=== PATIENT | male | born 1940 | race Caucasian/White ===

== ENCOUNTER 2017-05-13 07:24 | Day surgery (SDC) | payer MEDICARE, OTHER ==
[2017-05-08 15:50] VITALS: BMI 26.5
[~2017-05-13 07:24] MED LIST: LACTATED RINGERS 1,000 ML IV SCH; LIDOCAINE 1% 20 ML VIAL (10MG/ML) FOR IV START INTRADERMA PRN
[2017-05-13 07:47] VITALS: TEMP 97
[2017-05-13] MEDS ORDERED: PROPOFOL 10 MG/ML 20 ML VIAL IV ONE (08:28)
--- NOTE | 2017-05-13 08:52 | P.PCN ---
Date of Procedure: 05/13/17 Preoperative Diagnosis: Postoperative Diagnosis: Procedure(s) Performed: Procedure: Total colonoscopy. Preoperative diagnosis: Screening for neoplasia. Postoperative diagnosis: Sigmoid diverticulosis with no evidence of acute diverticulitis, strictures, polyps or cancer. Preparation: HalfLytely prep. Sedation: Was provided by anesthesia. Brief clinical history: The patient is a 76-year-old male who is referred for this evaluation for screening for neoplasia age being his risk factor. He had a prior colonoscopy around 5 years ago. The patient has no abdominal complaints , bleeding or anemia. Procedure: With the patient on his left lateral decubitus position and after informed consent and adequate sedation, the perianal area was inspected and it did not show any fissures or fistulas. There were no masses felt on digital rectal examination. The Olympus CFQ 160L video colonoscope was then inserted in the rectum in the usual fashion and advanced to the cecum. There were several diverticular orifices seen scattered in the sigmoid but there was no evidence of acute diverticulitis or strictures. No polyps or tumors were seen. I retroflexed the endoscope in the rectum before the endoscope was withdrawn. The patient tolerated the procedure well. Plan: The patient was reassured. Discussed dietary measures. At his age, I did not recommend repeat endoscopy in 10 years and that can be kept as a contingency based on his overall health at that time. He will follow up with you as planned. Implants: Indications for Procedure: Operative Findings: Description of Procedure:
[2017-05-13 09:20] VITALS: BP 164/76; PULSE 44; RESP 18
== END 2017-05-13 09:33 | disposition home or self-care (01) ==
LOC: ORWHC2ENDO 07:24
DX: Z12.11 Encounter for screening for malignant neoplasm of colon (principal); K57.30 Diverticulosis of large intestine without perforation or abscess without bleeding; I10 Essential (primary) hypertension; Z72.0 Tobacco use; Z79.82 Long term (current) use of aspirin; Z79.899 Other long term (current) drug therapy
CPT/HCPCS: J2704; G0121

== ENCOUNTER → 2017-07-15 | Outpatient (CLI) | payer MEDICARE ==
[2017-07-15 09:25] LABS: Blood Urea Nitrogen 17 mg/dL (9-20); Non-African American GFR(MDRD) >60 (>60 ml/min/1.73 sqM)
--- NOTE | 2017-07-15 10:21 | CT ---
EXAMINATION TYPE: CT chest w con DATE OF EXAM: 07/15/2017 COMPARISON: NONE HISTORY: SOB, Lt Pleural effusion CT DLP: 411.6 mGycm, Automated exposure control for dose reduction was used. CONTRAST: Performed injected with 100 mL of Omnipaque 300. TECHNIQUE: Axial images were obtained at 5 mm thick sections. Reconstructed images are reviewed on [employer] computer in the coronal plane. FINDINGS: Portion of the thyroid visualized is normal. There is some scarring at the bilateral lung apices. On the right this measures approximately 2.1 x 2 .8 cm. Emphysematous changes are present throughout the upper lung joshi. Milder emphysematous hall es are at the lung bases. There is a nodule within the lingula measuring 0.7 cm. Series 4 image 38. P unctate nodules within the periphery of the right middle lobe measuring 0.3 cm. Series 4 image 38. So me pleural thickening along the major fissure on the right is present. This measures 0.4 cm in thickn ess, image 36 series 4. No enlarged mediastinal or hilar adenopathy is evident. The ascending aorta diameter at the level o f the main pulmonary artery is 3.7 cm. The main pulmonary artery diameter at the bifurcation is 2.4 cm. Coronary artery calcification is noted. Small hiatal hernia is present. Limited CT sections are obtained through the upper abdomen. Aneurysmal dilatation of the visualized a bdominal aorta up to 5.0 cm is evident. Additional workup of the abdominal aorta is recommended. IMPRESSIONS: 1. Scattered lung nodules and suspected scarring. Neoplasm is not excluded. Short-term follow-up CT c hest in 3 months is recommended. 2. Aneurysmal dilatation of the visualized abdominal aorta. Complete workup of the abdominal aorta is recommended.
== END | disposition home or self-care (01) ==
LOC: RADCTMAIN 08:46
PROVIDERS: ATTEND Family Medicine
DX: R91.1 Solitary pulmonary nodule (principal); I71.4 Abdominal aortic aneurysm, without rupture
CPT/HCPCS: 82565; 84520; 71260; 36415; Q9967

== ENCOUNTER → 2017-08-25 | Outpatient (CLI) | payer MEDICARE ==
[2017-08-25 14:37] LABS: Blood Urea Nitrogen 18 mg/dL (9-20); Non-African American GFR(MDRD) >60 (>60 ml/min/1.73 sqM)
--- NOTE | 2017-08-25 15:21 | CT ---
EXAMINATION TYPE: CT angio abdomen pelvis DATE OF EXAM: 08/25/2017 COMPARISON: NONE HISTORY: Patient has no complants at time of study. Follow up study for abnromal prior CT. CT DLP: 1018.5 mGycm CONTRAST: CTA abdominal aorta with 3-D reconstruction is performed without Oral Contrast and without and with I V Contrast, patient injected with 100 mL of Omnipaque 350. Contrast CTA of the abdominal aorta was performed from the lung apex through the base of the pelvis. 3-D reconstruction imaging obtained at a separate workstation. Lung bases: Mild chronic parenchymal changes. Abdominal AORTA: Infrarenal abdominal aortic aneurysm is noted which measures 4.8 cm AP dimension by 5.2 cm transverse dimension by 11 cm in length. There is evidence of mural thrombus. Aneurysm extends to the level of the aortic bifurcation without extension into the iliac vessels. The neck of the ane urysm is 2.3 cm from the renal arteries. Branch vessels are patent. LIVER/GB- No significant abnormal ity is seen. PANCREAS- No significant abnormality is seen. SPLEEN- No significant abnormality is seen. ADRENALS- No significant abnormality is seen. KIDNEYS/BLADDER-small renal cysts noted. BOWEL- No Significant abnormality GENITAL ORGANS: No gross abnormality seen. LYMPH NODES- No greater than 1cm abdominal or pelvic lymph nodes areappreciated. OSSEOUS STRUCTURES- No significant abnormality is seen. OTHER-bilateral fat-containing hernias. IMPRESSION- 1. Infrarenal abdominal aortic aneurysm as discussed.
== END | disposition home or self-care (01) ==
LOC: RADCTMAIN 13:54
DX: I71.4 Abdominal aortic aneurysm, without rupture (principal)
CPT/HCPCS: 82565; 84520; 36415; 74174; Q9967

== ENCOUNTER 2021-10-03 19:14 | Inpatient (IN) | payer MEDICARE ==
[2021-10-03] MEDS ORDERED: IPRATROPIUM 0.5 MG/2.5 ML NEBU INHALATION STA (19:19)
[2021-10-03] MEDS ORDERED: ALBUTEROL NEBULIZED 2.5 MG/3 ML INHALATION STA (19:19)
[2021-10-03] MEDS ORDERED: methylPREDNISolone SOD SUCCI 125 MG/2 ML VIAL IV STA (19:19)
[2021-10-03] MEDS ORDERED: LORazepam 2 MG/ML INJ IV STA (20:01)
--- NOTE | 2021-10-03 20:10 | XR ---
EXAMINATION TYPE: XR chest 1V portable DATE OF EXAM: 10/03/2021 COMPARISON: NONE HISTORY: Difficulty breathing TECHNIQUE: Single view FINDINGS: There is coarse interstitial density in the lungs. There is no gross heart failure. There a re chest leads. Costophrenic angles are fairly clear. There are no hilar masses. IMPRESSION: Pulmonary interstitial fibrosis. No pleural fluid seen to suggest heart failure.
[2021-10-03] MEDS ORDERED: MIDAZOLAM 1 MG/ML 5 ML VIAL IV STA ×2 (20:13→21:10)
[2021-10-03 20:53] LABS: VBG PH 7.22 (7.31-7.41)
[2021-10-03 20:54] LABS: Basophils # (A) 0.1 k/uL (0-0.2); Basophils % (A) 0 %; Eosinophils % (A) 0 %; HCT 43.2 % (39.0-53.0); HGB 14.2 gm/dL (13.0-17.5); Lymphocytes # (A) 0.7 k/uL (1.0-4.8); Lymphocytes % (A) 4 %; MCH 30.5 pg (25.0-35.0); MCHC 32.8 g/dL (31.0-37.0); MCV 92.7 fL (80.0-100.0); Monocytes # (A) 0.6 k/uL (0-1.0); Monocytes % (A) 3 %; Neutrophils # (A) 15.7 k/uL (1.3-7.7); Neutrophils % (A) 92 %; Platelet Count 121 k/uL (150-450); RBC 4.66 m/uL (4.30-5.90); RDW 13.8 % (11.5-15.5); WBC 17.2 k/uL (3.8-10.6)
[2021-10-03] MEDS ORDERED: AZITHROMYCIN 500 MG in SODIUM CHLORIDE 0.9% 250 ML IVPB STA (20:57)
[2021-10-03] MEDS ORDERED: cefTRIAXone IN SWFI 1,000 MG/10 ML SYRINGE IVP STA (20:57)
[2021-10-03 21:06] LABS: Albumin 3.3 g/dL (3.5-5.0); Calcium 9.4 mg/dL (8.4-10.2); Magnesium 2.8 mg/dL (1.6-2.3); Potassium 5.5 mmol/L (3.5-5.1); Total Bilirubin 1.8 mg/dL (0.2-1.3); Total Protein 6.4 g/dL (6.3-8.2)
[2021-10-03] MEDS: KETAMINE 10 MG/ML 20 ML VIAL IV ONE ×2 (21:06→21:09)
[2021-10-03] MEDS ORDERED: ROCURONIUM 10 MG/ML (5 ML VIAL) IV STA (21:11)
[2021-10-03 21:20] LABS: Partial Thromboplastin Time 20.2 sec (22.0-30.0); Prothrombin Time 10.5 sec (9.0-12.0)
[2021-10-03] MEDS ORDERED: SODIUM CHLORIDE 0.9% 1,000 ML IV ONE (21:26)
[2021-10-03] MEDS: SODIUM CHLORIDE 0.9% 1,000 ML IV SCH (21:30)
--- NOTE | 2021-10-03 21:38 | XR ---
EXAMINATION TYPE: XR chest 1V DATE OF EXAM: 10/03/2021 COMPARISON: 10/03/2021 HISTORY: Tube placement TECHNIQUE: FINDINGS: There is extensive pulmonary interstitial infiltrate. There is endotracheal tube is 7 cm fr om the elie. There are chest leads. There is no pneumothorax. IMPRESSION: Extensive pulmonary predominantly interstitial infiltrates without change. Endotracheal t ube is slightly high could be advanced 2 cm.
[2021-10-03] MEDS ORDERED: NALOXONE 0.4 MG/ML 1 ML VIAL IV PRN (21:53)
[2021-10-03] MEDS ORDERED: MORPHINE SULFATE 2 MG/ML SYRINGE IV PRN (21:53)
[2021-10-03] MEDS ORDERED: ENOXAPARIN 40 MG/0.4 ML SYRINGE SQ STA (21:56)
[2021-10-03] MEDS ORDERED: ACETAMINOPHEN SUPPOSITORY 650 MG SUPP RECTAL PRN (22:00)
--- NOTE | 2021-10-03 22:02 | ED ---
General Adult HPI - General Chief complaint: Shortness of Breath Stated complaint: DOMENIC Source: EMS, RN notes reviewed, old records reviewed Mode of arrival: EMS Limitations: altered mental status - History of Present Illness Initial comments: 81-year-old male presenting from home with reported several days of worsening cough and dyspnea. History is limited. Patient was transported by paramedics, found to be hypoxic in the 50s. He was placed on CPAP and was nearly intubated during transport. Patient had reported previous medical history of COPD and emphysema and was prescribed home oxygen but did not use this regularly. No other history available. - Related Data Home Medications Medication Instructions Recorded Confirmed Losartan Potassium [Cozaar] 100 mg PO DAILY 05/17/15 10/03/21 Albuterol Sulfate [Ventolin HFA] 2 puff INHALATION RT-Q6H PRN 10/03/21 10/03/21 Umeclidinium Brm/Vilanterol Tr 1 puff INHALATION RT-DAILY 10/03/21 10/03/21 [Anoro Ellipta 62.5-25 Mcg INH] Allergies Allergy/AdvReac Type Severity Reaction Status Date / Time No Known Allergies Allergy Verified 10/03/21 20:39 Review of Systems ROS Statement: Those systems with pertinent positive or pertinent negative responses have been documented in the HPI. ROS Other: All systems not noted in ROS Statement are negative. Past Medical History Past Medical History: COPD, Hypertension Additional Past Medical History / Comment(s): RT LEG RASH (THINKS EXZEMA) "CORN ON RIGHT PINKIE" History of Any Multi-Drug Resistant Organisms: None Reported Past Surgical History: Appendectomy, Heart Catheterization, Hernia Repair Additional Past Surgical History / Comment(s): HERNIA REPAIR X2 Past Anesthesia/Blood Transfusion Reactions: No Reported Reaction Past Psychological History: No Psychological Hx Reported Smoking Status: Former smoker Past Alcohol Use History: None Reported Past Drug Use History: None Reported - Past Family History Brother(s) Family Medical History: Cancer General Exam Limitations: altered mental status General appearance: obtunded, in distress Head exam: Present: atraumatic, normocephalic Eye exam: Present: normal appearance, PERRL ENT exam: Present: mucous membranes dry Respiratory exam: Present: respiratory distress, rales, rhonchi, accessory muscle use, decreased breath sounds Cardiovascular Exam: Present: regular rate, normal rhythm GI/Abdominal exam: Present: soft. Absent: distended, tenderness, guarding, rebound Extremities exam: Present: other (Peripheral cyanosis, mottled extremities). Absent: normal capillary refill Neurological exam: Present: motor sensory deficit (Patient seems to be moving all extremities symmetrically). Absent: oriented X3 Psychiatric exam: Present: agitated, anxious Skin exam: Present: warm, mottled Course Vital Signs 10/03/21 10/03/21 10/03/21 19:16 19:33 20:16 Temperature 96.0 F L Pulse Rate 101 H 98 106 H Respiratory 34 H Rate Blood Pressure 159/106 O2 Sat by Pulse 94 L Oximetry 10/03/21 21:50 Temperature 97.0 F L Pulse Rate 103 H Respiratory 12 Rate Blood Pressure 133/66 O2 Sat by Pulse 96 Oximetry EKG Findings - EKG Comments: EKG Findings:: EKG: Sinus tachycardia with PVC, rate of 105, UT interval 198, QRS duration 88, QTC 425, no ST segment elevation. Procedures - Intubation Sedative: Versed Mg Given: 5 Paralytic: Rocuronium Mg Given: 50 Laryngoscope: Gregory Size: 3 ET Tube Size: 7.5 ET Tube Uncuffed: No Tube Secured Depth (cm): 22 Tube Secured Location: lips Tube Placement Confirmation: visualized tube passing through cords, equal breath sounds bilaterally, no breath sounds over epigastrium, confirmation by capnometry Patient Tolerated Procedure: well Intubation Complications: none Medical Decision Making - Medical Decision Making 81-year-old male presenting in severe respiratory distress with hypoxia. He was given a trial of BiPAP but was unable to tolerate. He was intubated in the emergency department. Initial chest x-ray shows fibrosis and suggests bilateral infiltrate. Patient has leukocytosis 17.2. Stable hemoglobin. He has a creatinine of 3.9 and elevated BUN which is acute for this patient. Lactic acid is 7.2 which I suspect is from a combination of hypoxia and dehydration. He is started on IV fluids as well as IV steroids and IV antibiotics. He is maintained on the ventilator. I did discuss case both with Dr. Cabral, Dr. García covering for the ICU. COVID pos. - Lab Data Result diagrams: 10/03/21 20:34 10/03/21 20:34 Lab Results 10/03/21 10/03/21 10/03/21 Range/Units 19:19 19:52 20:34 WBC 17.2 H (3.8-10.6) k/uL RBC 4.66 (4.30-5.90) m/uL Hgb 14.2 (13.0-17.5) gm/dL Hct 43.2 (39.0-53.0) % MCV 92.7 (80.0-100.0) fL MCH 30.5 (25.0-35.0) pg MCHC 32.8 (31.0-37.0) g/dL RDW 13.8 (11.5-15.5) % Plt Count 121 L (150-450) k/uL MPV 11.0 Neutrophils % 92 % Lymphocytes % 4 % Monocytes % 3 % Eosinophils % 0 % Basophils % 0 % Neutrophils # 15.7 H (1.3-7.7) k/uL Lymphocytes # 0.7 L (1.0-4.8) k/uL Monocytes # 0.6 (0-1.0) k/uL Eosinophils # 0.0 (0-0.7) k/uL Basophils # 0.1 (0-0.2) k/uL PT (9.0-12.0) sec INR (<1.2) APTT (22.0-30.0) sec VBG pH (7.31-7.41) VBG pCO2 (37-51) mmHg VBG HCO3 (24-28) mmol/L Sodium (137-145) mmol/L Potassium (3.5-5.1) mmol/L Chloride (98-107) mmol/L Carbon Dioxide (22-30) mmol/L Anion Gap mmol/L BUN (9-20) mg/dL Creatinine (0.66-1.25) mg/dL Est GFR (CKD-EPI)AfAm (>60 ml/min/1.73 sqM) Est GFR (CKD-EPI)NonAf (>60 ml/min/1.73 sqM) Glucose (74-99) mg/dL Plasma Lactic Acid [place] 7.2 H* (0.7-2.0) mmol/L Calcium (8.4-10.2) mg/dL Magnesium (1.6-2.3) mg/dL Total Bilirubin (0.2-1.3) mg/dL AST (17-59) U/L ALT (4-49) U/L Alkaline Phosphatase (38-126) U/L Troponin I (0.000-0.034) ng/mL NT-Pro-B Natriuret Pep pg/mL Total Protein (6.3-8.2) g/dL Albumin (3.5-5.0) g/dL Coronavirus (PCR) Detected A (Not Detectd) 10/03/21 10/03/21 10/03/21 Range/Units 20:34 20:34 20:34 WBC (3.8-10.6) k/uL RBC (4.30-5.90) m/uL Hgb (13.0-17.5) gm/dL Hct (39.0-53.0) % MCV (80.0-100.0) fL MCH (25.0-35.0) pg MCHC (31.0-37.0) g/dL RDW (11.5-15.5) % Plt Count (150-450) k/uL MPV Neutrophils % % Lymphocytes % % Monocytes % % Eosinophils % % Basophils % % Neutrophils # (1.3-7.7) k/uL Lymphocytes # (1.0-4.8) k/uL Monocytes # (0-1.0) k/uL Eosinophils # (0-0.7) k/uL Basophils # (0-0.2) k/uL PT 10.5 (9.0-12.0) sec INR 1.0 (<1.2) APTT 20.2 L (22.0-30.0) sec VBG pH (7.31-7.41) VBG pCO2 (37-51) mmHg VBG HCO3 (24-28) mmol/L Sodium 140 (137-145) mmol/L Potassium 5.5 H (3.5-5.1) mmol/L Chloride 106 (98-107) mmol/L Carbon Dioxide 15 L (22-30) mmol/L Anion Gap 19 mmol/L BUN 95 H (9-20) mg/dL Creatinine 3.90 H (0.66-1.25) mg/dL Est GFR (CKD-EPI)AfAm 16 (>60 ml/min/1.73 sqM) Est GFR (CKD-EPI)NonAf 14 (>60 ml/min/1.73 sqM) Glucose 199 H (74-99) mg/dL Plasma Lactic Acid [place] (0.7-2.0) mmol/L Calcium 9.4 (8.4-10.2) mg/dL Magnesium 2.8 H (1.6-2.3) mg/dL Total Bilirubin 1.8 H (0.2-1.3) mg/dL AST 78 H (17-59) U/L ALT 38 (4-49) U/L Alkaline Phosphatase 115 (38-126) U/L Troponin I 0.370 H* (0.000-0.034) ng/mL NT-Pro-B Natriuret Pep pg/mL Total Protein 6.4 (6.3-8.2) g/dL Albumin 3.3 L (3.5-5.0) g/dL Coronavirus (PCR) (Not Detectd) 10/03/21 10/03/21 Range/Units 20:34 20:34 WBC (3.8-10.6) k/uL RBC (4.30-5.90) m/uL Hgb (13.0-17.5) gm/dL Hct (39.0-53.0) % MCV (80.0-100.0) fL MCH (25.0-35.0) pg MCHC (31.0-37.0) g/dL RDW (11.5-15.5) % Plt Count (150-450) k/uL MPV Neutrophils % % Lymphocytes % % Monocytes % % Eosinophils % % Basophils % % Neutrophils # (1.3-7.7) k/uL Lymphocytes # (1.0-4.8) k/uL Monocytes # (0-1.0) k/uL Eosinophils # (0-0.7) k/uL Basophils # (0-0.2) k/uL PT (9.0-12.0) sec INR (<1.2) APTT (22.0-30.0) sec VBG pH 7.22 L (7.31-7.41) VBG pCO2 42 (37-51) mmHg VBG HCO3 17 L (24-28) mmol/L Sodium (137-145) mmol/L Potassium (3.5-5.1) mmol/L Chloride (98-107) mmol/L Carbon Dioxide (22-30) mmol/L Anion Gap mmol/L BUN (9-20) mg/dL Creatinine (0.66-1.25) mg/dL Est GFR (CKD-EPI)AfAm (>60 ml/min/1.73 sqM) Est GFR (CKD-EPI)NonAf (>60 ml/min/1.73 sqM) Glucose (74-99) mg/dL Plasma Lactic Acid [place] (0.7-2.0) mmol/L Calcium (8.4-10.2) mg/dL Magnesium (1.6-2.3) mg/dL Total Bilirubin (0.2-1.3) mg/dL AST (17-59) U/L ALT (4-49) U/L Alkaline Phosphatase (38-126) U/L Troponin I (0.000-0.034) ng/mL NT-Pro-B Natriuret Pep 00249 pg/mL Total Protein (6.3-8.2) g/dL Albumin (3.5-5.0) g/dL Coronavirus (PCR) (Not Detectd) Critical Care Time Critical Care Time: Yes Total Critical Care Time: 35 Disposition Clinical Impression: Acute exacerbation of chronic obstructive pulmonary disease, Respiratory failure with hypoxia, Pneumonia due to COVID-19 virus, Acute renal failure Disposition: ADMITTED IP TO THIS HOSP Condition: Serious Is patient prescribed a controlled substance at d/c from ED?: No Referrals: None,Stated [Primary Care Provider] - 1-2 days Decision to Admit Reason: Admit from EC Decision Date: 10/03/21 Decision Time: 22:02
[2021-10-03 22:39] LABS: ABG Base Excess -10.8 mmol/L; ABG HCO3 20 mmol/L (21-25); ABG Oxygen Saturation 88.5 % (94-97); ABG PO2 83 mmHg (83-108); ABG TCO2 22 mmol/L (19-24); Allen Test Performed? Yes
[2021-10-03 22:41] LABS: Appearance,Urine Cloudy (Clear); Bacteria,Urine Rare /hpf; Bilirubin,Urine Negative (Negative); Blood,Urine Negative (Negative); Color,Urine Yellow; Glucose,Urine (UA) Negative (Negative); Hyaline Casts,Urine 32 /lpf (0-2); Ketones,Urine Negative (Negative); Leukocyte Esterase,Urine Negative (Negative); Mucus,Urine Rare /hpf; Nitrite,Urine Negative (Negative); Protein,Urine 1+ (Negative); RBC,Urine 2 /hpf (0-5); Squamous Epithelial Cell,Urine 1 /hpf (0-4); WBC,Urine 3 /hpf (0-5)
[2021-10-03 22:41] LABS: ABG PCO2 71 mmHg (35-45); ABG PH 7.05 (7.35-7.45)
[2021-10-03] MEDS ORDERED: WATER FOR INJECTION, STERILE 1,000 ML with SODIUM ACETATE 150 MEQ IV SCH ×2 (22:45)
[2021-10-03] MEDS ORDERED: SODIUM BICARB 8.4% 50 ML SYR (1 MEQ/ML) IV STA ×2 (23:32)
[2021-10-03 23:41] LABS: Glucose,Whole Blood 249 mg/dL (75-99)
[2021-10-03] MEDS ORDERED: NOREPINEPHRIN 4 MG-0.9% NS PMX 4 MG/250 ML ML IV ONE (23:48)
[2021-10-04] MEDS ORDERED: NOREPINEPHRINE 4 MG in SODIUM CHLORIDE 0.9% 250 ML IV SCH ×2
[2021-10-04] MEDS ORDERED: DEXTROSE 5% IN WATER 1,000 ML with SODIUM BICARB (1 MEQ/ML) 150 ML IV SCH ×2
[2021-10-04] MEDS: NOREPINEPHRINE 4 MG in SODIUM CHLORIDE 0.9% 250 ML IV SCH ×2 (00:24→04:54)
--- NOTE | 2021-10-04 00:31 | XR ---
EXAMINATION TYPE: XR chest 1V portable DATE OF EXAM: 10/04/2021 COMPARISON: Yesterday HISTORY: Respiratory failure TECHNIQUE: FINDINGS: There is endotracheal tube 5.5 cm from the elie. There is coarse pulmonary interstitial i nfiltrates. There is some atelectasis at the lung bases. There is nasogastric tube in the stomach. Th ere is no obvious heart failure. IMPRESSION: Extensive pulmonary infiltrates without change. Endotracheal tube in fairly good position . There is probably underlying pulmonary fibrosis.
[2021-10-04 00:47] LABS: ABG Base Excess -5.9 mmol/L; ABG HCO3 23 mmol/L (21-25); ABG Oxygen Saturation 91.6 % (94-97); ABG PCO2 65 mmHg (35-45); ABG PO2 82 mmHg (83-108); ABG TCO2 25 mmol/L (19-24); Allen Test Performed? Yes
[2021-10-04 01:14] LABS: ABG PH 7.16 (7.35-7.45)
[2021-10-04] MEDS: INSULIN ASPART (NovoLOG) 100 UNIT/ML VIAL SQ SCH ×2 (01:37→05:43)
[2021-10-04] MEDS: methylPREDNISolone SOD SUCCI 125 MG/2 ML VIAL IV SCH ×2 (01:37→05:42)
--- NOTE | 2021-10-04 01:57 | P.HPIM ---
History of Present Illness H&P Date: 10/04/21 The patient is a 81-year-old male with a PMH of COPD and hypertension who was brought into the emergency room via EMS for shortness of breath and hypoxia. The history was obtained from the chart and from the via phone as the patient was intubated in the emergency room. The reports that over the past 1 week, the patient has had gradually worsening shortness of breath and cough. She notes that today however, his dyspnea worsened to the point where she activated EMS. Upon arrival, the patient was noted to be hypoxic in the 50s although was not intubated in the field as his SpO2 improved with CPAP. Upon arrival to the emergency room, the patient was noted to be in severe respiratory distress and subsequently had to be intubated. Laboratory evaluation revealed Coronavirus PCR positive, lactic acid 7.2, troponin 0.370, LDH 2418, d-dimer 20.12, BUN 95, creatinine 3.9, potassium 5.5, and a pH of 7.05 with a pCO2 of 71. Chest x-rays were consistent with interstitial abnormalities. EKG revealed sinus tachycardia with PVCs at 105 bpm. Of note, the patient received the J&J single dose vaccine in 03/2021. Review of systems: Unable to perform as patient is intubated Physical examination: General: Intubated sedated Male, non toxic, no distress, appears at stated age, normal weight Derm: no unusual rashes/lesions no unusual ecchymoses, warm, dry Head: atraumatic, normocephalic, symmetric Eyes: anicteric sclera, pupils equal round reactive to light ENT: Nose and ears atraumatic Neck: No thyromegaly, no cervical lymphadenopathy, trachea midline, supple Mouth: no lip lesion Cardiovascular: S1S2 reg, no murmur, positive posterior tibial pulse bilateral, no edema, capillary refill less than 2 seconds Lungs: Scattered coarse breath sounds, no accessory muscle use Abdominal: soft, nontender to palpation, no guarding, no appreciable organomegal Ext: no gross muscle atrophy, no contractures, Neuro: Unable to asses, minimal cough and gag reflex noted Assessment/plan COVID-19 pneumonitis with acute hypoxic respiratory failure -Continue with ventilator bundle -Pulmonary consulted -C/w Solumedrol Troponin elevation -Likely Type II DC in setting of hypoxic resp failure Lactic acidosis -C/w IVFs -Monitor for resolution -Continue with sodium bicarbonate infusion Kidney failure -Continue with IV fluids and sodium bicarbonate DVT prophylaxis -Lovenox The patient is admitted with an anticipated greater than 2 midnight stay for evaluation of COVID CODE STATUS: No Code Discussed with: Patient Anticipated discharge date: Unclear Past Medical History Past Medical History: COPD, Hypertension Additional Past Medical History / Comment(s): RT LEG RASH (THINKS EXZEMA) "CORN ON RIGHT PINKIE" History of Any Multi-Drug Resistant Organisms: None Reported Past Surgical History: Appendectomy, Heart Catheterization, Hernia Repair Additional Past Surgical History / Comment(s): HERNIA REPAIR X2 Past Anesthesia/Blood Transfusion Reactions: No Reported Reaction Past Psychological History: No Psychological Hx Reported Smoking Status: Former smoker Past Alcohol Use History: None Reported Additional Past Alcohol Use History / Comment(s): SMOKES 1PPD FROM AGE 15 (1952) STATES RECOVERING ALCHOHOLIC, NO DRINKING SINCE 1979 Past Drug Use History: None Reported - Past Family History Brother(s) Family Medical History: Cancer Medications and Allergies Home Medications Medication Instructions Recorded Confirmed Type Losartan Potassium [Cozaar] 100 mg PO DAILY 05/17/15 10/03/21 History Albuterol Sulfate [Ventolin HFA] 2 puff INHALATION RT-Q6H PRN 10/03/21 10/03/21 History Umeclidinium Brm/Vilanterol Tr 1 puff INHALATION RT-DAILY 10/03/21 10/03/21 History [Anoro Ellipta 62.5-25 Mcg INH] Allergies Allergy/AdvReac Type Severity Reaction Status Date / Time No Known Allergies Allergy Verified 10/03/21 20:39 Physical Exam Vitals: Vital Signs Temp Pulse Resp BP Pulse Ox 10/04/21 00:15 94 24 70/48 95 10/04/21 00:00 96.3 F L 95 24 66/45 94 L 10/03/21 23:59 93 24 96 10/03/21 23:40 96 24 60/31 94 L 10/03/21 23:15 96 24 85/51 93 L 10/03/21 23:02 97 16 107/57 96 10/03/21 22:20 103 H 12 131/73 95 10/03/21 22:15 104 H 12 133/70 95 10/03/21 22:10 104 H 12 133/70 96 10/03/21 22:05 105 H 12 133/70 96 10/03/21 22:00 102 H 12 133/66 95 10/03/21 21:55 103 H 12 133/66 95 10/03/21 21:51 104 H 12 133/66 95 10/03/21 21:50 97.0 F L 103 H 12 133/66 96 10/03/21 20:16 106 H 10/03/21 19:33 98 10/03/21 19:16 96.0 F L 101 H 34 H 159/106 94 L Intake and Output 10/03/21 10/03/21 10/04/21 14:59 22:59 06:59 Intake Total 246.578 Output Total 30 Balance 216.578 Intake: IV 230 Dextrose 5% in Water 1, 100 000 ml @ 100 mls/hr IV . [id number] [facility] with Sodium Bicarb (1 Meq/ml) 150 ml Rx#:[id number] Sodium Chloride 0.9% 1, 130 000 ml @ 130 mls/hr IV . Q7H42M [facility] Rx#:[id number] Intake, IV Titration 16.578 Amount Norepinephrine 4 mg In 14.689 Sodium Chloride 0.9% 250 ml @ 0.05 MCG/KG/MIN 14. 69 mls/hr IV .[id number] [facility] Rx#:[id number] propofoL 1,000 mg In 1.889 Empty Bag 1 bag @ Titrate IV .Q0M [facility] Rx#: [id number] Output: Urine 30 Other: Weight 77.111 kg Results CBC & Chem 7: 10/03/21 20:34 10/03/21 20:34 Labs: Abnormal Lab Results - Last 24 Hours (Table) 10/03/21 10/03/21 10/03/21 Range/Units 19:19 19:52 20:34 WBC 17.2 H (3.8-10.6) k/uL Plt Count 121 L (150-450) k/uL Neutrophils # 15.7 H (1.3-7.7) k/uL Lymphocytes # 0.7 L (1.0-4.8) k/uL APTT (22.0-30.0) sec D-Dimer (<0.60) mg/L FEU ABG pH (7.35-7.45) ABG pCO2 (35-45) mmHg ABG pO2 (83-108) mmHg ABG HCO3 (21-25) mmol/L ABG Total CO2 (19-24) mmol/L ABG O2 Saturation (94-97) % VBG pH (7.31-7.41) VBG HCO3 (24-28) mmol/L Potassium (3.5-5.1) mmol/L Carbon Dioxide (22-30) mmol/L BUN (9-20) mg/dL Creatinine (0.66-1.25) mg/dL Glucose (74-99) mg/dL POC Glucose (mg/dL) (75-99) mg/dL Plasma Lactic Acid [place] 7.2 H* (0.7-2.0) mmol/L Magnesium (1.6-2.3) mg/dL Total Bilirubin (0.2-1.3) mg/dL AST (17-59) U/L Lactate Dehydrogenase (313-618) U/L Troponin I (0.000-0.034) ng/mL Albumin (3.5-5.0) g/dL Urine Protein (Negative) Urine Bacteria (None) /hpf Hyaline Casts (0-2) /lpf Urine Mucus (None) /hpf Coronavirus (PCR) Detected A (Not Detectd) 10/03/21 10/03/21 10/03/21 Range/Units 20:34 20:34 20:34 WBC (3.8-10.6) k/uL Plt Count (150-450) k/uL Neutrophils # (1.3-7.7) k/uL Lymphocytes # (1.0-4.8) k/uL APTT 20.2 L (22.0-30.0) sec D-Dimer (<0.60) mg/L FEU ABG pH (7.35-7.45) ABG pCO2 (35-45) mmHg ABG pO2 (83-108) mmHg ABG HCO3 (21-25) mmol/L ABG Total CO2 (19-24) mmol/L ABG O2 Saturation (94-97) % VBG pH (7.31-7.41) VBG HCO3 (24-28) mmol/L Potassium 5.5 H (3.5-5.1) mmol/L Carbon Dioxide 15 L (22-30) mmol/L BUN 95 H (9-20) mg/dL Creatinine 3.90 H (0.66-1.25) mg/dL Glucose 199 H (74-99) mg/dL POC Glucose (mg/dL) (75-99) mg/dL Plasma Lactic Acid [place] (0.7-2.0) mmol/L Magnesium 2.8 H (1.6-2.3) mg/dL Total Bilirubin 1.8 H (0.2-1.3) mg/dL AST 78 H (17-59) U/L Lactate Dehydrogenase (313-618) U/L Troponin I 0.370 H* (0.000-0.034) ng/mL Albumin 3.3 L (3.5-5.0) g/dL Urine Protein (Negative) Urine Bacteria (None) /hpf Hyaline Casts (0-2) /lpf Urine Mucus (None) /hpf Coronavirus (PCR) (Not Detectd) 10/03/21 10/03/21 10/03/21 Range/Units 20:34 22:07 22:30 WBC (3.8-10.6) k/uL Plt Count (150-450) k/uL Neutrophils # (1.3-7.7) k/uL Lymphocytes # (1.0-4.8) k/uL APTT (22.0-30.0) sec D-Dimer (<0.60) mg/L FEU ABG pH 7.05 L* (7.35-7.45) ABG pCO2 71 H* (35-45) mmHg ABG pO2 (83-108) mmHg ABG HCO3 20 L (21-25) mmol/L ABG Total CO2 (19-24) mmol/L ABG O2 Saturation 88.5 L (94-97) % VBG pH 7.22 L (7.31-7.41) VBG HCO3 17 L (24-28) mmol/L Potassium (3.5-5.1) mmol/L Carbon Dioxide (22-30) mmol/L BUN (9-20) mg/dL Creatinine (0.66-1.25) mg/dL Glucose (74-99) mg/dL POC Glucose (mg/dL) (75-99) mg/dL Plasma Lactic Acid [place] (0.7-2.0) mmol/L Magnesium (1.6-2.3) mg/dL Total Bilirubin (0.2-1.3) mg/dL AST (17-59) U/L Lactate Dehydrogenase (313-618) U/L Troponin I (0.000-0.034) ng/mL Albumin (3.5-5.0) g/dL Urine Protein 1+ H (Negative) Urine Bacteria Rare H (None) /hpf Hyaline Casts 32 H (0-2) /lpf Urine Mucus Rare H (None) /hpf Coronavirus (PCR) (Not Detectd) 10/03/21 10/04/21 10/04/21 Range/Units 23:39 00:16 00:16 WBC (3.8-10.6) k/uL Plt Count (150-450) k/uL Neutrophils # (1.3-7.7) k/uL Lymphocytes # (1.0-4.8) k/uL APTT (22.0-30.0) sec D-Dimer 20.12 H (<0.60) mg/L FEU ABG pH (7.35-7.45) ABG pCO2 (35-45) mmHg ABG pO2 (83-108) mmHg ABG HCO3 (21-25) mmol/L ABG Total CO2 (19-24) mmol/L ABG O2 Saturation (94-97) % VBG pH (7.31-7.41) VBG HCO3 (24-28) mmol/L Potassium (3.5-5.1) mmol/L Carbon Dioxide (22-30) mmol/L BUN (9-20) mg/dL Creatinine (0.66-1.25) mg/dL Glucose (74-99) mg/dL POC Glucose (mg/dL) 249 H (75-99) mg/dL Plasma Lactic Acid [place] (0.7-2.0) mmol/L Magnesium (1.6-2.3) mg/dL Total Bilirubin (0.2-1.3) mg/dL AST (17-59) U/L Lactate Dehydrogenase 2418 H (313-618) U/L Troponin I (0.000-0.034) ng/mL Albumin (3.5-5.0) g/dL Urine Protein (Negative) Urine Bacteria (None) /hpf Hyaline Casts (0-2) /lpf Urine Mucus (None) /hpf Coronavirus (PCR) (Not Detectd) 10/04/21 10/04/21 Range/Units 00:16 00:45 WBC (3.8-10.6) k/uL Plt Count (150-450) k/uL Neutrophils # (1.3-7.7) k/uL Lymphocytes # (1.0-4.8) k/uL APTT (22.0-30.0) sec D-Dimer (<0.60) mg/L FEU ABG pH 7.16 L* (7.35-7.45) ABG pCO2 65 H (35-45) mmHg ABG pO2 82 L (83-108) mmHg ABG HCO3 (21-25) mmol/L ABG Total CO2 25 H (19-24) mmol/L ABG O2 Saturation 91.6 L (94-97) % VBG pH (7.31-7.41) VBG HCO3 (24-28) mmol/L Potassium (3.5-5.1) mmol/L Carbon Dioxide (22-30) mmol/L BUN (9-20) mg/dL Creatinine (0.66-1.25) mg/dL Glucose (74-99) mg/dL POC Glucose (mg/dL) (75-99) mg/dL Plasma Lactic Acid [place] 3.8 H* (0.7-2.0) mmol/L Magnesium (1.6-2.3) mg/dL Total Bilirubin (0.2-1.3) mg/dL AST (17-59) U/L Lactate Dehydrogenase (313-618) U/L Troponin I (0.000-0.034) ng/mL Albumin (3.5-5.0) g/dL Urine Protein (Negative) Urine Bacteria (None) /hpf Hyaline Casts (0-2) /lpf Urine Mucus (None) /hpf Coronavirus (PCR) (Not Detectd) Thrombosis Risk Factor Assmnt - Choose All That Apply Any of the Below Risk Factors Present?: Yes Each Factor Represents 1 point: Abnormal pulmonary function (COPD) Other Risk Factors: No Other congenital or acquired thrombophilia - If yes, enter type in comment: No Thrombosis Risk Factor Assessment Total Risk Factor Score: 1 Thrombosis Risk Factor Assessment Level: Low Risk
--- NOTE | 2021-10-04 01:59 | P.PN ---
Progress Note - Text Progress Note Date: 10/04/21 Advanced Care Planning: Diagnoses: Acute hypoxic respiratory failure secondary to COVID-19 pneumonia Discussion: Person(s) present and participating in discussion: Summary: Discussed the patient's goals of care in great detail with the via the telephone. She noted that her had always wanted to not be placed on life support long-term and that when his time came, that he should be allowed to pass peacefully. She noted that she wouldn't want to be a DNR although she does not wish for us to stop any current treatments at this time. Will make the patient a No Code as per the family's wishes. A total of 16 minutes of face to face time was spent discussing advanced care planning.
[2021-10-04 04:47] VITALS: TEMP 98.1
[2021-10-04 05:35] LABS: ABG HCO3 24 mmol/L (21-25); ABG Oxygen Saturation 79.3 % (94-97); ABG PCO2 64 mmHg (35-45); ABG TCO2 26 mmol/L (19-24); Allen Test Performed? Yes
[2021-10-04 05:36] LABS: Glucose,Whole Blood 328 mg/dL (75-99)
[2021-10-04 05:40] LABS: ABG PH 7.17 (7.35-7.45); ABG PO2 54 mmHg (83-108)
[2021-10-04 06:07] LABS: HGB 15.6 gm/dL (13.0-17.5); MCH 29.3 pg (25.0-35.0); MCHC 30.7 g/dL (31.0-37.0); MCV 95.6 fL (80.0-100.0); Mean Platelet Volume 6.5; RBC 5.33 m/uL (4.30-5.90); RDW 15.6 % (11.5-15.5)
[2021-10-04] MEDS: SODIUM CHLORIDE 0.9% 1,000 ML IV SCH (06:46)
[2021-10-04 07:06] VITALS: BP 155/70; PULSE 101; RESP 33
[2021-10-04 07:17] LABS: Calcium 8.5 mg/dL (8.4-10.2)
[2021-10-04 07:38] LABS: Potassium 6.1 mmol/L (3.5-5.1)
--- NOTE | 2021-10-04 07:49 | P.CNPUL ---
History of Present Illness Consult date: 10/04/21 Reason for consult: dyspnea, hypoxemia History of present illness: 81-year-old male patient with known history of COPD, doesn't have regular foll ow-up with his physicians, came into the emergency department yesterday due to worsening shortness of breath and hypoxemia. Note that the patient was in significant amount of respiratory distress. He is breathing was progressively getting worse over the past several days. History was quite limited from the emergency department as the patient was very much unresponsive. He was briefly placed on a BiPAP which she failed and ultimately was intubated and placed on a mechanical ventilator. The Patient has limited blood work there was not any murmurs department and this was markedly abnormal. The pH was 7.05 with a pCO2 of 71 and pO2 of 83. The initial lactic acid level was at 7.2. The patient was in acute kidney injury with a creatinine of 3.9 and a BUN of 95. Initial potassium level was at 5.5. Troponin was abnormal at 0.3. ProBNP level was 11,004 100. Chest x-ray was consistent with diffuse but the pulmonary infiltrates and ultimately his nasal swab by PCR came back positive for coronary 19. Based on that, the patient was kept intubated on mechanical ventilator, he was kept on propofol and moved to the intensive care unit. Overnight, he was kept on a mechanical ventilator, assist control mode and the PEEP was brought up to 10 with an FiO2 of 100% and a tidal volume of 450 with a rate of 24. Subsequent blood gases showed a pH of 7.17 with a pCO2 of 64 and pO2 of 54. The patient received a total of 1 L of fluid by EMS, another liter in the emergency and the patient was given to dose of sodium bicarb and the ICU and following that he was started on a bicarb infusion. Urine output remained limited. Blood pressure was soft and he was started on norepinephrine infusion and the note that he was running at a dose of 0.139 g/kg per minute and this was the highest dose. He was started on steroids. He was started on antibiotics and was given a combination of Rocephin and Zithromax in the emergency department. He was placed on Lovenox for DVT prophylaxis. He was started on bronchodilators. 11th extremely emaciated and cachectic and he currently weighs 72.8 kg and his body mass index is 23. Earlier this morning, the patient acutely went into a bradycardic rhythm and he lost his blood pressure. He went subsequently into a PEA and subsequently he . Family was informed earlier of the progression. The CODE STATUS already been switched to DNR/DNI. Note that his lactic acid level was still elevated at 6.4. Review of Systems ROS unobtainable: due to endotracheal tube Past Medical History Past Medical History: COPD, Hypertension Additional Past Medical History / Comment(s): RT LEG RASH (THINKS EXZEMA) "CORN ON RIGHT PINKIE" History of Any Multi-Drug Resistant Organisms: None Reported Past Surgical History: Appendectomy, Heart Catheterization, Hernia Repair Additional Past Surgical History / Comment(s): HERNIA REPAIR X2 Past Anesthesia/Blood Transfusion Reactions: No Reported Reaction Past Psychological History: No Psychological Hx Reported Smoking Status: Former smoker Past Alcohol Use History: None Reported Additional Past Alcohol Use History / Comment(s): SMOKES 1PPD FROM AGE 15 (1952) STATES RECOVERING ALCHOHOLIC, NO DRINKING SINCE 1979 Past Drug Use History: None Reported - Past Family History Brother(s) Family Medical History: Cancer Medications and Allergies Home Medications Medication Instructions Recorded Confirmed Type Losartan Potassium [Cozaar] 100 mg PO DAILY 05/17/15 10/03/21 History Albuterol Sulfate [Ventolin HFA] 2 puff INHALATION RT-Q6H PRN 10/03/21 10/03/21 History Umeclidinium Brm/Vilanterol Tr 1 puff INHALATION RT-DAILY 10/03/21 10/03/21 History [Anoro Ellipta 62.5-25 Mcg INH] Allergies Allergy/AdvReac Type Severity Reaction Status Date / Time No Known Allergies Allergy Verified 10/03/21 20:39 Physical Exam Vitals: Vital Signs Temp Pulse Resp BP Pulse Ox 10/04/21 07:00 101 H 33 H 155/70 86 L 10/04/21 06:45 105 H 30 H 151/76 82 L 10/04/21 06:30 105 H 30 H 74/48 83 L 10/04/21 06:15 105 H 27 H 106/51 80 L 10/04/21 06:00 105 H 29 H 84/50 81 L 10/04/21 05:45 106 H 29 H 86/53 82 L 10/04/21 05:30 107 H 29 H 87/51 82 L 10/04/21 05:15 106 H 28 H 93/59 82 L 10/04/21 05:00 106 H 29 H 83/63 83 L 10/04/21 04:45 105 H 28 H 95/64 84 L 10/04/21 04:30 105 H 29 H 93/63 84 L 10/04/21 04:15 104 H 29 H 85/54 84 L 10/04/21 04:00 98.1 F 103 H 28 H 92/55 86 L 10/04/21 03:45 103 H 26 H 92/63 85 L 10/04/21 03:30 102 H 27 H 96/62 86 L 10/04/21 03:15 102 H 27 H 96/62 87 L 10/04/21 03:00 101 H 26 H 94/60 86 L 10/04/21 02:45 101 H 27 H 98/58 87 L 10/04/21 02:30 101 H 28 H 93/60 89 L 10/04/21 02:15 99 28 H 94/55 88 L 10/04/21 02:00 99 25 H 88/58 88 L 10/04/21 01:45 94 28 H 102/57 87 L 10/04/21 01:30 98 24 87/56 88 L 10/04/21 01:15 96 25 H 100/57 89 L 10/04/21 01:00 96 25 H 84/52 81 L 10/04/21 00:45 95 26 H 84/54 96 10/04/21 00:30 94 26 H 81/52 96 10/04/21 00:27 93 25 H 81/52 96 10/04/21 00:15 94 24 70/48 95 10/04/21 00:00 96.3 F L 95 24 66/45 94 L 10/03/21 23:59 93 24 96 10/03/21 23:40 96 24 60/31 94 L 10/03/21 23:15 96 24 85/51 93 L 10/03/21 23:02 97 16 107/57 96 10/03/21 22:20 103 H 12 131/73 95 10/03/21 22:15 104 H 12 133/70 95 10/03/21 22:10 104 H 12 133/70 96 10/03/21 22:05 105 H 12 133/70 96 10/03/21 22:00 102 H 12 95 10/03/21 21:55 103 H 95 10/03/21 21:51 104 H 12 133 95 10/03/21 21:50 97.0 F L 103 H 12 13366 96 10/03/21 20:16 106 H 10/03/21 19:33 98 10/03/21 19:16 96.0 F L 101 H 34 H 159/106 94 L Intake and Output 10/03/21 10/04/21 10/04/21 22:59 06:59 14:59 Intake Total 1739.258 1.175 Output Total 240 Balance 1499.258 1.175 Intake: IV 1310 Dextrose 5% in Water 1, 700 000 ml @ 100 mls/hr IV . [id number] NGOC with Sodium Bicarb (1 Meq/ml) 150 ml Rx#:[id number] Sodium Chloride 0.9% 1, 610 000 ml @ 130 mls/hr IV . Q7H42M [facility] Rx#:[id number] Intake, IV Titration 429.258 1.175 Amount Norepinephrine 4 mg In 382.028 1.175 Sodium Chloride 0.9% 250 ml @ 0.05 MCG/KG/MIN 14. 69 mls/hr IV .[id number] [facility] Rx#:[id number] propofoL 1,000 mg In 47.230 Empty Bag 1 bag @ Titrate IV .Q0M [facility] Rx#: [id number] Output: Gastric Drainage 150 Urine 90 Other: Voiding Method Indwelling Catheter Weight 72.8 kg 72.8 kg General: Intubated sedated Male, non toxic, no distress, appears at stated age, BMI is at 23, cachectic and emaciated, pale, orogastric and orotracheal tube are both in place Derm: no unusual rashes/lesions no unusual ecchymoses, warm, dry Head: atraumatic, normocephalic, symmetric Eyes: anicteric sclera, pupils equal round reactive to light ENT: Nose and ears atraumatic Neck: No thyromegaly, no cervical lymphadenopathy, trachea midline, supple Mouth: no lip lesion Cardiovascular: S1S2 reg, no murmur, positive posterior tibial pulse bilateral, no edema, capillary refill less than 2 seconds Lungs: Scattered coarse breath sounds, no accessory muscle use Abdominal: soft, nontender to palpation, no guarding, no appreciable organomegal Ext: no gross muscle atrophy, no contractures, Neuro: Unable to asses, minimal cough and gag reflex noted Results - Laboratory Findings CBC and BMP: 10/04/21 05:26 10/04/21 05:26 ABG ABG pH 7.17 (7.35-7.45) L* 10/04/21 05:34 ABG pCO2 64 mmHg (35-45) H 10/04/21 05:34 ABG pO2 54 mmHg (83-108) L* 10/04/21 05:34 ABG O2 Saturation 79.3 % (94-97) L 10/04/21 05:34 PT/INR, D-dimer PT 10.5 sec (9.0-12.0) 10/03/21 20:34 INR 1.0 (<1.2) 10/03/21 20:34 D-Dimer 20.12 mg/L FEU (<0.60) H 10/04/21 00:16 Abnormal lab findings: Abnormal Labs 10/03/21 10/03/21 10/03/21 19:19 19:52 20:34 WBC 17.2 H MCHC RDW Plt Count 121 L Neutrophils # 15.7 H Lymphocytes # 0.7 L APTT D-Dimer ABG pH ABG pCO2 ABG pO2 ABG HCO3 ABG Total CO2 ABG O2 Saturation VBG pH VBG HCO3 Potassium Carbon Dioxide BUN Creatinine Glucose POC Glucose (mg/dL) Plasma Lactic Acid [place] 7.2 H* Magnesium Total Bilirubin AST Lactate Dehydrogenase Troponin I Albumin Urine Protein Urine Bacteria Hyaline Casts Urine Mucus Coronavirus (PCR) Detected A 10/03/21 10/03/21 10/03/21 20:34 20:34 20:34 WBC MCHC RDW Plt Count Neutrophils # Lymphocytes # APTT 20.2 L D-Dimer ABG pH ABG pCO2 ABG pO2 ABG HCO3 ABG Total CO2 ABG O2 Saturation VBG pH VBG HCO3 Potassium 5.5 H Carbon Dioxide 15 L BUN 95 H Creatinine 3.90 H Glucose 199 H POC Glucose (mg/dL) Plasma Lactic Acid [place] Magnesium 2.8 H Total Bilirubin 1.8 H AST 78 H Lactate Dehydrogenase Troponin I 0.370 H* Albumin 3.3 L Urine Protein Urine Bacteria Hyaline Casts Urine Mucus Coronavirus (PCR) 10/03/21 10/03/21 10/03/21 20:34 22:07 22:30 WBC MCHC RDW Plt Count Neutrophils # Lymphocytes # APTT D-Dimer ABG pH 7.05 L* ABG pCO2 71 H* ABG pO2 ABG HCO3 20 L ABG Total CO2 ABG O2 Saturation 88.5 L VBG pH 7.22 L VBG HCO3 17 L Potassium Carbon Dioxide BUN Creatinine Glucose POC Glucose (mg/dL) Plasma Lactic Acid [place] Magnesium Total Bilirubin AST Lactate Dehydrogenase Troponin I Albumin Urine Protein 1+ H Urine Bacteria Rare H Hyaline Casts 32 H Urine Mucus Rare H Coronavirus (PCR) 10/03/21 10/04/21 10/04/21 23:39 00:16 00:16 WBC MCHC RDW Plt Count Neutrophils # Lymphocytes # APTT D-Dimer 20.12 H ABG pH ABG pCO2 ABG pO2 ABG HCO3 ABG Total CO2 ABG O2 Saturation VBG pH VBG HCO3 Potassium Carbon Dioxide BUN Creatinine Glucose POC Glucose (mg/dL) 249 H Plasma Lactic Acid [place] Magnesium Total Bilirubin AST Lactate Dehydrogenase 2418 H Troponin I Albumin Urine Protein Urine Bacteria Hyaline Casts Urine Mucus Coronavirus (PCR) 10/04/21 10/04/21 10/04/21 00:16 00:45 05:26 WBC 22.0 H MCHC 30.7 L RDW 15.6 H Plt Count Neutrophils # Lymphocytes # APTT D-Dimer ABG pH 7.16 L* ABG pCO2 65 H ABG pO2 82 L ABG HCO3 ABG Total CO2 25 H ABG O2 Saturation 91.6 L VBG pH VBG HCO3 Potassium Carbon Dioxide BUN Creatinine Glucose POC Glucose (mg/dL) Plasma Lactic Acid [place] 3.8 H* Magnesium Total Bilirubin AST Lactate Dehydrogenase Troponin I Albumin Urine Protein Urine Bacteria Hyaline Casts Urine Mucus Coronavirus (PCR) 10/04/21 10/04/21 10/04/21 05:26 05:34 05:34 WBC MCHC RDW Plt Count Neutrophils # Lymphocytes # APTT D-Dimer ABG pH 7.17 L* ABG pCO2 64 H ABG pO2 54 L* ABG HCO3 ABG Total CO2 26 H ABG O2 Saturation 79.3 L VBG pH VBG HCO3 Potassium Carbon Dioxide BUN Creatinine Glucose POC Glucose (mg/dL) 328 H Plasma Lactic Acid [place] 6.4 H* Magnesium Total Bilirubin AST Lactate Dehydrogenase Troponin I Albumin Urine Protein Urine Bacteria Hyaline Casts Urine Mucus Coronavirus (PCR) - Diagnostic Findings Chest x-ray: image reviewed Assessment and Plan Plan: 1 acute COVID 19 related pneumonia with secondary respiratory failure. The patient presented to us in a critical condition. The patient was profoundly hypoxic, unresponsive, with extensive, hemodynamically unstable, and severe lactic acidosis and he was also in acute kidney injury and there was also signs of decompensated heart failure. The patient was intubated and placed on mechanical ventilator in the emergency department. Subsequently, the patient's condition further decompensated and the patient had an unexpected acute cardiac arrest in the ICU a few hours after being admitted. Note that during this time, the patient was given antibiotics, fluids, steroids, bicarb infusion and he was being stabilized and he unexpectedly went into an acute cardiac arrest/PEA after having a brief bradycardia. CODE STATUS is DNR. No attempts to resuscitate the patient was not based on his underlying CODE STATUS. Family has been informed. 2 advanced COPD, with chronic hypoxic respiratory failure, unsure if his been compliant to his oxygen therapy. Baseline pulmonary function testing is not known. The patient has been maintained on Anoro on outpatient basis 3 history of hypertension 4 comorbidities related to coronary 19 related pneumonia including acute kidney injury, acute lactic acidosis, acute leukocytosis, anion gap metabolic acidosis and hyperkalemia with a potassium level of 6.1 from morning labs. Plan This was a mortality that occurred within 8 hours of being admitted to the intensive care units. Comorbidities were mentioned above. Likely decompensating factor was Covid 19 infection with secondary pneumonia respiratory failure with the rest of the comorbidities.
[2021-10-04] MEDS ORDERED: IPRATROPIUM-ALBUTEROL 3 ML NEB INHALATION SCH (08:00)
[2021-10-04] MEDS ORDERED: ALBUTEROL HFA INHALER INHALATION SCH (08:00)
--- NOTE | 2021-10-04 08:45 | XR ---
EXAMINATION TYPE: XR chest 1V portable DATE OF EXAM: 10/04/2021 COMPARISON: 10/04/2021 HISTORY: Shortness of breath TECHNIQUE: Single frontal view of the chest is obtained. FINDINGS: Underlying COPD noted and there is bibasilar infiltrates are stable in appearance. Underly ing pulmonary fibrosis suspected. Hypertrophic and degenerative change of the spine. ET and NG tube s table. IMPRESSION: 1. COPD chronic interstitial pulmonary fibrosis suspected bilateral lower lobe interstitial pneumonit is or infiltrate stable.
[2021-10-04] MEDS ORDERED: CHLORHEXIDINE GLUCONATE 15 ML CUP MUCOUS MEM SCH (09:00)
[2021-10-04] MEDS ORDERED: ENOXAPARIN 40 MG/0.4 ML SYRINGE SQ SCH (09:00)
--- NOTE | 2021-10-04 13:03 | P.DS ---
Providers Date of admission: 10/03/21 21:53 Expected date of discharge: 10/04/21 Attending physician: Rustam Cabral MD Consults: 10/03/21 21:53 Consult Physician Stat Consulting Provider: Munir García Consult Reason/Comments: covid, hypoxic respiratory failure Do you want consulting provider notified?: Already Contacted Primary care physician: Stated None Hospital Course: Patient this morning prior to my evaluation. For further details about this hospitalization please refer to the H&P. For exact time and date of please refer to nursing staff documentation. Patient Condition at Discharge: Serious Plan - Discharge Summary Discharge Rx Participant: No New Discharge Prescriptions: No Action Losartan Potassium [Cozaar] 100 mg PO DAILY Umeclidinium Brm/Vilanterol Tr [Anoro Ellipta 62.5-25 Mcg INH] 1 puff INHALATION RT-DAILY Albuterol Sulfate [Ventolin HFA] 2 puff INHALATION RT-Q6H PRN PRN Reason: Shortness Of Breath Discharge Medication List Losartan Potassium [Cozaar] 100 mg PO DAILY 05/17/15 [History] Albuterol Sulfate [Ventolin HFA] 2 puff INHALATION RT-Q6H PRN 10/03/21 [History] Umeclidinium Brm/Vilanterol Tr [Anoro Ellipta 62.5-25 Mcg INH] 1 puff INHALATION RT-DAILY 10/03/21 [History] Follow up Appointment(s)/Referral(s): None,Stated [Primary Care Provider] - 1-2 days Discharge Disposition: - Preliminary Cause of Preliminary Cause of : COVID
[2021-10-04 15:28] LABS: Band Neutrophils % 4 %; Lymphocytes # (M) 0.22 k/uL (1.0-4.8); Monocytes # (M) 0.44 k/uL (0-1.0); Neutrophils % (M) 93 %; Nucleated Red Blood Cells 0 /100 WBC (0-0); Total Cells Counted 100
[2021-10-04 15:29] LABS: Platelet Count 52 k/uL (150-450)
--- NOTE | 2021-10-04 17:49 | ECHOF ---
Referral Reason:elevated trop MEASUREMENTS -------- HEIGHT: 152.4 cm WEIGHT: 72.6 kg BP: FINDINGS -------- Attempted study NO IMAGES: Pt is COVID Positive, COPD & on Vent. The RV was not well visualized. The left atrium was not well visualized. The right atrium was not well visualized. The aortic valve was not well visualized. The mitral valve was not well visualized. The tricuspid valve was not well visualized. The pulmonic valve was not well visualized. CONCLUSIONS -------- 1. Attempted study NO IMAGES: Pt is COVID Positive, COPD & on Vent. 2. The RV was not well visualized. 3. The left atrium was not well visualized. 4. The right atrium was not well visualized. 5. The aortic valve was not well visualized. 6. The mitral valve was not well visualized. 7. The tricuspid valve was not well visualized. 8. The pulmonic valve was not well visualized. [employer]BER: Preeti Rai RDCS
== END 2021-10-04 11:27 | disposition expired | DRG 208 ==
LOC: EC 19:14 → 2SICU 21:53
PROVIDERS: ADMIT Internal Medicine; ATTEND Internal Medicine
PROC: 5A1935Z Respiratory Ventilation, Less than 24 Consecutive Hours (ICD-10-PCS; principal; 2021-10-03)
PROC: 0BH17EZ Insertion of Endotracheal Airway into Trachea, Via Natural or Artificial Opening (ICD-10-PCS; 2021-10-03)
PROC: 5A09357 Assistance with Respiratory Ventilation, Less than 24 Consecutive Hours, Continuous Positive Airway Pressure (ICD-10-PCS; 2021-10-03)
DX: U07.1 COVID-19 (principal); J12.82 Pneumonia due to coronavirus disease 2019; I21.A1 Myocardial infarction type 2; J96.21 Acute and chronic respiratory failure with hypoxia; N17.9 Acute kidney failure, unspecified; R64 Cachexia; E87.2 Acidosis; E86.0 Dehydration; I10 Essential (primary) hypertension; E87.5 Hyperkalemia; J43.9 Emphysema, unspecified; I49.3 Ventricular premature depolarization; R00.1 Bradycardia, unspecified; I46.9 Cardiac arrest, cause unspecified; Z66 Do not resuscitate; Z79.899 Other long term (current) drug therapy; Z87.891 Personal history of nicotine dependence; Z98.890 Other specified postprocedural states; Z80.9 Family history of malignant neoplasm, unspecified; Z68.23 Body mass index [BMI] 23.0-23.9, adult; Z99.81 Dependence on supplemental oxygen
CPT/HCPCS: 31500; 36415; 36600; 71045; 80048; 80053; 81001; 82271; 82803; 82805; 83605; 83615; 83735; 83880; 84145; 84484; 85025; 85379; 85610; 85730; 87040; 87070; 87077; 87186; 87205; 87635; 93005; 93308; 94003; 94640; 94660; 96374; 96375; 99291